=== PATIENT | female | born 1950 | race Caucasian/White ===

== ENCOUNTER → 2017-02-01 22:54 | Outpatient (CLI) | payer MEDICARE ==
[~2017-02-01 22:54] MED LIST: NEXIUM20 MG PO; [UNRECOGNIZED DRUG - OTHER] VG
== END | disposition home or self-care (01) ==
LOC: D.MAMMO 14:30
DX: N64.4 Mastodynia (principal)

== ENCOUNTER 2017-02-07 05:11 | Day surgery (SDC) | payer MEDICARE, BC ==
[2017-02-06 11:17] LABS: BASOPHILS 0.4 % (0-2); EOSINOPHILS 0.7 % (0-7); HEMATOCRIT 39.1 % (36.0-48.0); HEMOGLOBIN 12.7 g/dL (12-16); IMMATURE GRANULOCYTES 0.4 % (0-5); LYMPHOCYTES 35.7 % (15-50); MCH 29.3 pg (26.0-34.0); MCHC 32.5 g/dL (31.0-37.0); MCV 90.3 fL (80.0-100.0); NEUTROPHILS 58.8 % (40-80); PLATELET COUNT 239 10x3/uL (130-400); RBC 4.33 10x6/uL (4.00-5.40); RDW 13.6 % (11.5-14.5); WBC 5.7 10x3/uL (4.8-10.8)
[2017-02-06 11:31] LABS: APTT 28.5 SECONDS (22.8-39.4); PROTIME 13.1 SECONDS (11.6-15.0)
[2017-02-06 11:39] LABS: CALC OSMOLALITY 276 mosm/kg (275-300); CALCIUM 9.5 mg/dL (8.5-10.1); CARBON DIOXIDE 27.3 mmol/L (21.0-32.0); CHLORIDE - SERUM 103 mmol/L (98-107); CREATININE - SERUM 0.8 mg/dL (0.6-1.3); GLUCOSE 96 mg/dL (74-106); SODIUM 138 mmol/L (136-145); UREA NITROGEN 16 mg/dL (7-18); eGFR NON AFRICAN AMERICAN 75 mL/min (90-120)
[~2017-02-07] VITALS: Ht 165.1 cm; Wt 72.6 kg
--- NOTE | ~2017-02-07 | OP ---
PATIENT NAME: KRISTINA SOLOMON MEDICAL RECORD: [id number] :46 LOCATION:[facility] ADMISSION DATE: SURGEON: ELEONORA MCINTOSH MD DATE OF OPERATION: 02/07/2017 PREOPERATIVE DIAGNOSIS: Vaginal dysplasia with abnormal Pap smears. POSTOPERATIVE DIAGNOSIS: Vaginal dysplasia with abnormal Pap smears. PROCEDURE: Examination under anesthesia, colposcopy, vaginal biopsies and laser vaginal lesions. SURGEON: Eleonora Mcintosh M.D. ANESTHESIA: General. FINDINGS: Mild vulvovaginal atrophy with mild acetowhite changes at the vaginal apex under colposcopy. ESTIMATED BLOOD LOSS: Minimal. COMPLICATIONS OF PROCEDURE: None. OPERATIVE NOTE: The patient was taken to the OR and under adequate general anesthesia, prepped and draped in the usual manner for vaginal procedures. No previous prep of the vagina was done in order to allow accurate visualization. Upon visualization with the colposcope and use of acetic acid for staining purposes, mild acetowhite changes were visible at the vaginal apex. Biopsies were taken times 3 and will be sent for further evaluation. The CO2 laser was then used to treat the entire vaginal apex and superior vaginal celestin. At the end of procedure, there was minimal bleeding. The patient tolerated the procedure well and went to the recovery area in good condition. TRANSINT:[id number] Voice Confirmation ID: [id number] DOCUMENT ID: [id number] ELEONORA MCINTOSH MD CC: [id number] DICTATION DATE: 02/07/1740 TOP [facility]OR ATTENDANT: 02/07/17 [id number] [place] [address]
[2017-02-07 06:12] VITALS: BP 133/74; Ht 165.1 cm; Wt 72.6 kg
--- NOTE | 2017-02-07 07:25 | HP ---
PATIENT: KRISTINA SOLOMON MEDICAL RECORD: [id number] ACCOUNT: [id number] LOCATION:[facility] : 46 ADMISSION DATE: 02/07/17 HISTORY AND PHYSICAL EXAMINATION HISTORY OF PRESENT ILLNESS: This patient is a 66-year-old 2, para 2 white female with repetitive abnormal Paps of the vagina. History of past vaginal dysplasia. She is scheduled for examination under anesthesia, colposcopy, vaginal biopsies, treatment of any lesions with a laser or cautery as indicated. MEDICAL HISTORY: DRUG ALLERGIES: PENICILLIN, CODEINE, COMPAZINE, THORAZINE, PHENERGAN, STADOL, SULFA. CURRENT MEDICATIONS: Nexium. MEDICAL PROBLEMS: She has a history of melanoma, interstitial cystitis, VAIN 1, and atrophic vaginitis. PREVIOUS SURGERIES: Include surgery for endometriosis, hysteroscopy and hysterectomy. FAMILY HISTORY: Noncontributory. REVIEW OF SYSTEMS: No chest pain, no dyspnea. She does have irritable bowel. SOCIAL HISTORY: The patient is , nonsmoker, occasional ethanol use. PHYSICAL EXAMINATION: VITAL SIGNS: Weight is 160, blood pressure 140/80. HEENT: Unremarkable. LUNGS: Clear. HEART: Regular rate and rhythm. ABDOMEN: Soft and nontender. PELVIC: Examination is current and deferred for anesthesia. EXTREMITIES: No cyanosis, clubbing or edema. NEUROLOGIC: Grossly intact. IMPRESSION: Repetitive abnormal Paps read as ASCUS HPV positive, history of melanoma and history of vaginal dysplasia. PLAN: Examination under anesthesia with appropriate biopsies and cautery or CO2 laser treatment of any lesions. Discussed the above plan with the patient and answered all her questions, further discussed potential complications for example, anesthesia, infection, bleeding and injury to other organs. TRANSINT:[id number] Voice Confirmation ID: [id number] DOCUMENT ID: [id number] HISTORY AND PHYSICAL [id number] SOLOMONKRISTINATRINIDAD PHAM MD at 0725 CC: [id number] DICTATION DATE: 02/06/171802 VOLUMETRIC WEIGHER: 02/06/17 [address] [facility] [address] [place] [address]
[2017-02-07] MEDS ORDERED: MEPERIDINE HCL50 MG PO (09:19)
--- NOTE | 2017-02-07 10:57 | NUR ---
AWAKE, STATES NAUSEA IS BETTER. GETTING UP NOW TO GET DRESSED. INFORMED TO CALL WHEN DRESSED AND READY FOR WHEELCHAIR.
== END 2017-02-07 11:10 | disposition home or self-care (01) ==
LOC: D.OPS 05:11 → D.PAN 07:30 → D.OPS 07:30
PROVIDERS: Anesthesiology; Obstetrics & Gynecology
DX: N90.0 Mild vulvar dysplasia (principal)

== ENCOUNTER → 2017-02-27 11:04 | Outpatient (CLI) | payer MEDICARE, BC ==
[2017-02-07 06:12] VITALS: BMI 26.6
[~2017-02-27 11:04] MED LIST changes: +MEPERIDINE HCL50 MG PO
== END | disposition home or self-care (01) ==
LOC: D.CT 02-23 13:00
DX: R91.8 Other nonspecific abnormal finding of lung field (principal)

== ENCOUNTER 2018-01-23 07:04 | Emergency (ER) | payer MEDICARE, BC ==
[2017-02-07 06:12] VITALS: BMI 26.6
== END 2018-01-23 07:05 ==
LOC: D.ER 07:04
DX: R11.10 Vomiting, unspecified (principal); R06.00 Dyspnea, unspecified

== ENCOUNTER → 2019-01-01 15:29 | Outpatient (CLI) | payer MEDICARE, BC ==
[2017-02-07 06:12] VITALS: BMI 26.6
== END | disposition home or self-care (01) ==
LOC: D.MAMMO 09:00
PROVIDERS: ATTEND Obstetrics & Gynecology
DX: N64.4 Mastodynia (principal)

== ENCOUNTER 2019-02-17 07:45 | Day surgery (SDC) | payer MEDICARE, BC ==
[~2019-02-17] VITALS: Ht 165.1 cm; Wt 72.6 kg
[2019-02-17 08:13] LABS: HEMATOCRIT 37.9 % (36.0-48.0); HEMOGLOBIN 12.4 g/dL (12-16); MCH 28.8 pg (26.0-34.0); MCHC 32.7 g/dL (31.0-37.0); MCV 88.1 fL (80.0-100.0); MEAN PLATELET VOLUME 9.4 fL (7.4-10.4); RBC 4.3 10x6/uL (4.00-5.40); WBC 5.6 10x3/uL (4.8-10.8)
[2019-02-17 10:25] VITALS: Ht 165.1 cm; Wt 72.6 kg
--- NOTE | 2019-02-17 14:56 | NUR ---
AT 1425 PATIENT VOIDED 200CC OF YELLOW URINE IN A BEDPAN IN PACU. INFORMED MALLORIE HSIEH RN UPON DISCHARGE FROM PACU OF THE ABOVE.
== END 2019-02-17 17:35 | disposition home or self-care (01) ==
LOC: D.OPS 07:45 → D.PAN 10:05 → D.OPS 10:15 → D.PAN 10:30 → D.OPS 17:35
PROVIDERS: Anesthesiology; ATTEND Obstetrics & Gynecology
DX: R87.619 Unspecified abnormal cytological findings in specimens from cervix uteri (principal)